=== PATIENT | female | born 1995 | race Caucasian/White ===

== ENCOUNTER 2018-01-05 20:36 | Emergency (ER) | payer OTHER ==
[~2018-01-05] VITALS: Ht 170.2 cm; Wt 90.7 kg
[~2018-01-05 20:36] MED LIST: CEPH500C24 PO; LOR5/325 PO
--- NOTE | 2018-01-05 20:39 | ER Report ---
History and Physical Time Seen By MD: 20:39 HPI/ROS CHIEF COMPLAINT: foot laceration HISTORY OF PRESENT ILLNESS: This is a 22 year old female. She was cleaning her leaf blender and dropped the sharp blade and it landed on her foot lacerating the top of her right foot. Normal sensation. No weakness or problems moving the foot and toes. Last tetanus was about 1 year ago. Allergies: Coded Allergies: No Known Drug Allergies (Unverified , 01/05/18) Home Meds Active Scripts Cephalexin Monohydrate (CEPHALEXIN) 500 Mg Cap, 500 MG PO Q6H, #20 CAP 0 Refills Prov:YULY SIMONS MD 01/05/18 Reported Medications Citalopram Hydrobromide (CELEXA) 10 Mg Tablet, 10 MG PO QDAY, #5 TAB 01/05/18 Discontinued Scripts Cephalexin Monohydrate (CEPHALEXIN) 500 Mg Cap, 500 MG PO Q6H, #28 CAP 0 Refills Prov:YULY SIMONS MD 07/24/16 Hydrocodone Bit/Acetaminophen (HYDROCODON-ACETAMINOPHEN 5-325) 1 Each Tablet, 1 EACH PO Q4-6H Y for PAIN, #12 TAB 0 Refills TAKE ONE TABLET BY MOUTH EVERY 4-6 HOURS NEEDED FOR PAIN Prov:YULY SIMONS MD 07/24/16 Reviewed Nurses Notes: Yes Hx Smoking: No Hx Substance Use Disorder: No Constitutional Vital Sign - Last 24 Hours 01/05/18 01/05/18 20:41 21:24 Temp 98.4 Pulse 109 100 Resp 18 19 B/P (MAP) 136/87 Pulse Ox 93 96 O2 Delivery Room Air Room Air Physical Exam General: Alert, no acute distress. Skin: about 3cm laceration dorsal right foot at midfoot. Neuro: normal sensation. Musculoskeletal: No tendon compromise. Normal strength and motor Cardiovascular: Brisk capillary refill. Medical Decision Making ED Course/Re-evaluation ED Course Procedure: Laceration Repair Verbal consent from patient after discussing repair options, risks and benefits. Wound cleaned extensively with Hibiclens and saline. Anesthesia: 1% lidocaine without epinephrine and 0.5% bupivacaine without epinephrine. Location: Dorsal foot, right. Length: 3cm. Character: linear, down past subcutaneous. There were no deep structures involved. No tendon injury was identified. Wound repair: running 4-0 Ethilon. The wound repair was simple and performed by myself. Wound care instructions discussed. Sutures need to be removed in 7 days. Cephalexin 500mg four times a day for 5 days. Decision to Disposition Date: Jan 05, 2018 Decision to Disposition Time: 21:12 Depart Departure Latest Vital Signs Vital Signs Date Time Temp Pulse Resp B/P (MAP) Pulse Ox O2 Delivery O2 Flow Rate FiO2 01/05/18 21:24 100 19 96 Room Air 01/05/18 20:41 98.4 136/87 Impression: Primary Impression: Foot laceration Condition: Improved Disposition: HOME OR SELF-CARE New Scripts Cephalexin Monohydrate (CEPHALEXIN) 500 Mg Cap 500 MG PO Q6H, #20 CAP 0 Refills Prov: YULY SIMONS MD 01/05/18 Patient Instructions: Laceration (ED) Additional Instructions: Wound Care: Wash the wound once a day with soap and water. Dry the wound and apply a small amount of antibiotic ointment with a clean dressing. If the dressing becomes wet or dirty, repeat cleaning and dressing as above. No soaking the wound; no swimming. Stitches need to be removed in 7 days. Pain Control: Use Tylenol or ibuprofen for pain. Using and ice pack can help reduce swelling. Antibiotic: Cephalexin 500mg 4 times a day for 5 days. Problem Qualifiers Primary Impression: Foot laceration Encounter type: initial encounter Laterality: right Qualified Codes: S91.311A - Laceration without foreign body, right foot, initial encounter YULY SIMONS MD Jan 05, 2018 20:39
[2018-01-05 20:41] VITALS: BP 136/87
[2018-01-05] MEDS ORDERED: CITA-155 PO (20:49)
[2018-01-05] MEDS ORDERED: CEPH500C24 PO (20:53)
[2018-01-05] MEDS ORDERED: CEPHALEXIN MONO 500 MG CAP PO ONE (20:55)
== END 2018-01-05 21:18 | disposition home or self-care (01) ==
LOC: ER 20:47
DX: S91.311A Laceration without foreign body, right foot, initial encounter (principal); W26.8XXA Contact with other sharp object(s), not elsewhere classified, initial encounter
CPT/HCPCS: 99282

== ENCOUNTER → 2018-04-03 | Outpatient (REF) | payer OTHER ==
[~2018-04-03] MED LIST changes: +CITA-155 PO
== END ==
LOC: ZZPBJ 13:39
PROVIDERS: ATTEND Orthopaedic Surgery
DX: M67.471 Ganglion, right ankle and foot (principal)
CPT/HCPCS: 88304